=== PATIENT | female | born 1980 | race Caucasian/White ===

== ENCOUNTER 2023-10-26 15:38 | Emergency (ER) | payer BC, SELFPAY ==
[2023-10-26 16:05] VITALS: BMI 33.1
[2023-10-26 16:07] VITALS: BP 122/97
[2023-10-26] MEDS: TORADOL 15 MG IM (16:18)
[2023-10-26] MEDS: ZOFRAN 4 MG IV (17:12)
[2023-10-26] MEDS: MORPHINE SULFATE 4 MG IV (17:12)
[2023-10-26] MEDS: DECADRON 10 MG IV (17:12)
--- NOTE | 2023-10-26 17:19 | ED.MUSCINJ ---
HPI-Injury
General
Chief Complaint: Musculo-Skeletal Complaint
Source: patient
Exam Limitations: none
Time Seen by Provider: 10/26/23 15:55
Nursing documentation reviewed up to this point in time: agreed with
Travel History
Have you had any contact with someone who has COVID-19?: No
Do you have any symptoms of coronavirus? Fever > 100 degrees, chills, cough, shortness of breath, sore throat, loss of taste or smell, muscle aches, or headache?: No
History of Present Illness-Injury
Is this injury a work related problem?: No
Is pt an associate of [facility]?: No
Initial Injury comments:
43-year-old female with low back pain after pushing a heavy box. She has been unable to bear weight on her legs, but is able to move. She denies any numbness in her groin, denies any incontinence.
Past History
Past History
ED Past Medical History: Hypercholesterolemia
ED Past Surgical History: Gynecological (Hysterectomy), Urological (Surgery) and Other (Eye surgery)
Social History
Tobacco: Non-smoker
Alcohol: None
Drug: None
Personal:
Living: with family
Review of Systems
Review of Systems
Allergies reviewed?: Yes
All Other Systems: Not applicable
Constitutional: Reports no symptoms
EENT: Reports no symptoms
Respiratory: Reports no symptoms
Cardiac: Reports no symptoms
ABD/GI: Reports no symptoms
: Reports no symptoms; Denies incontinence
Musculoskeletal: Reports back pain
Skin: Reports no symptoms
Neurological: Denies numbness
Endocrine: Reports no symptoms
Hematologic/Lymphatic: Reports no symptoms
Psychiatric: Reports no symptoms
Phy Exam
Physical Exam
Physical Exam:
Physical Exam
General: Afebrile, appears uncomfortable
Neck: supple. no meningeal signs. normal posterior pharynx
Heart: s1/s2 regular rate and rhythm, no murmur. equal radial
pulses.
HEENT: Pupils equal round reactive to light, EOMI
Lungs: no acute respiratory distress. clear bilaterally
Abdomen: normal bowel sounds. not tender. no CVAT
Neuro: alert and oriented. no focal neurological deficits cranial nerves II through XII intact
Skin: no rash
Psychiatric: well kept. interactive and cooperative
Extremities: no edema. no calf tenderness. negative homans. good distal pulses
back: Tender to palpation at left SI joint, no step-off
Injury Course
Orders/Labs/Results
Orders:
Orders
10/26/23 15:44
CR Lumbar Spine Comp Min 4 Vw* Urgent
Comment:
Reason For Exam: pain
10/26/23 16:10
Ketorolac [Toradol] 15 mg IM NOW STA
10/26/23 17:03
IV Insert/Care/Rem.- Treatment PRN
Dexamethasone Sod Phosphate [Decadron] 10 mg IV NOW STA
Morphine Sulfate 4 mg IV NOW STA
Ondansetron Injectable [Zofran] 4 mg IV NOW STA
MDM/Problems Addressed
Differential Diagnosis Includes:
cauda equina, lumbar radiculopathy, low back strain
MDM/Problems Addressed:
43-year-old female with low back pain, no signs of cauda equina. Patient able to ambulate but with some pain. Discharged with short course of prednisone, and follow-up with pain management.
*Radiology
Radiology exam reviewed: radiology read reviewed (Lumbar x-ray no acute findings)
*Pulse Oximetry
Patient hypoxic: no
*EKG
Interpreted by ED Provider?: NA
*Pharmacy Ancillary Interpretation
Rate: Pharmacy Ancillary- N/A
*Critical Care Note
Total Time (30-74mins, 75-104mins- exclusive of procedures): Not Applicable
Patient Management
Social determinants of health affecting care: Living situation
Escalation/DeEscalation of care consider admission/obs:
admit not indicated
ED Attending Note
-
Portions of this chart may have been created with voice recognition software.� Occasional wrong word or��sound alike� substitutions may have occurred due to the inherent limitations of voice recognition software.
Discharge Plan
Departure
Patient Disposition: Home (Routine Discharge)
Date of Disposition: 10/26/23
Time of Disposition: 17:47
Patient with high blood pressure during this ER visit?: No
Condition: Good
Discharge Problem:
Low back pain
Instructions: Back Pain
Prescriptions:
New
prednisone 50 mg tablet
50 mg PO DAILY Qty: 3 0RF
Referrals:
Donn Pisano MD [Active] - Call in 1-3 days for appt
NONE,* [Family Provider] -
Stand Alone Forms: Return to Work
Interventions
Interventions:
*Risk Screen - Suicide Last Done: 10/26/23 15:41
*General Assessment Last Done: 10/26/23 15:41
*Neglect/Abuse Screening Last Done: 10/26/23 15:41
ED- Fall Risk Assessment Last Done: 10/26/23 16:05
ED-Musculoskeletal Assessment Last Done: 10/26/23 16:05
Discharge Date and Time
Print Language: DIVEHI
[2023-10-26 17:43] VITALS: BP 107/87
== END 2023-10-26 18:38 | disposition home or self-care (01) ==
LOC: EMR 15:38
PROVIDERS: EMERGENCY PHYSICIAN Emergency Medicine
DX: M54.50 Low back pain, unspecified (principal); E78.00 Pure hypercholesterolemia, unspecified
CPT/HCPCS: 99283; 96374; 96375; 96372; 72110